=== PATIENT | female | born 1995 | race Caucasian/White ===

== ENCOUNTER 2017-08-15 11:48 | Emergency (ER) | payer OTHER ==
[~2017-08-15] VITALS: Ht 170.2 cm; Wt 105.7 kg
--- NOTE | ~2017-08-15 | EKG ---
[address] [place] [address] ELECTROCARDIOGRAM REPORT Name: SHIRARADHA Room #: [id number] Admission: 08/15/17 Attend Phys: Discharge: 08/15/17 Date of : [birth year] Report #: [id number] THIS REPORT FOR: //name// [facility] ED Test Date: 2017-08-15 Test Time: 12:45:27 Pat Name: RADHA SILVA Department: Room: Gender: F Factory Clerk: Ifeoma TERESA : 1995 Requested By: Lacie Rivero Order Number: [id number] MD: Juanpablo Lake Measurements Intervals [place] Rate: 64 P: 17 AL: 119 QRS: 33 QRSD: 94 T: -2 QT: 381 QTc: 393 Interpretive Statements Sinus rhythm Borderline short AL interval Nonspecific T abnormalities, anterior leads No previous ECG available for comparison Electronically Signed On 08-15-2017 16:38:38 CDT by Juanpablo Lake [email or web address] <ELECTRONICALLY SIGNED> By: Juanpablo Lake MD 08/15/17 1638 1245 1245 MD SPENCER Smith
[2017-08-15 12:51] LABS: ABSOLUTE NEUTROPHILS 5.4 thou/uL (1.4-8.2); BASOPHILS 0.8 % (0.0-2.0); EOSINOPHILS 0.8 % (0.0-3.0); HEMOGLOBIN 11.9 gm/dL (12.0-15.0); LYMPHOCYTES 25.3 % (24.0-44.0); MCH 28.5 pg (26.0-34.0); MCHC 33.2 g/dL (28.0-37.0); MONOCYTES 6.3 % (1.0-8.0); PLATELET COUNT 346 thou/uL (150-400); POLYS 66.8 % (36.0-66.0); RBC 4.18 mil/uL (4.20-5.00); RDW 12.8 % (10.5-14.5); WBC 8.1 thou/uL (4.0-11.0)
[2017-08-15 12:52] LABS: URINE BILIRUBIN NEGATIVE (Negative); URINE BLOOD 3+ (Negative); URINE COLOR YELLOW; URINE GLUCOSE-RANDOM* NEGATIVE (Negative); URINE KETONES NEGATIVE (Negative); URINE LEUKOCYTES-REFLEX NEGATIVE (Negative); URINE PROTEIN (DIPSTICK) TRACE (Negative); URINE UROBILINOGEN 0.2 E.U./dl (0.2-1.0)
[2017-08-15 12:53] LABS: CREATININE 0.8 mg/dL (0.6-1.0); POTASSIUM 3.9 mmol/L (3.5-5.1)
[2017-08-15 12:59] LABS: MANUAL DIFF NO
[2017-08-15 13:02] LABS: SQUAMOUS 4-10 Moderate /LPF (0-3)
[2017-08-15 13:03] LABS: CASTS None Seen /LPF (None Seen); CRYSTALS None Seen /LPF (None Seen); URINE RBC None Seen /HPF (0-2); URINE WBC-REFLEX 0-5 Rare /HPF (0-5)
[2017-08-15 15:54] VITALS: BP 133/68
== END 2017-08-15 16:05 | disposition home or self-care (01) ==
LOC: ER 11:48
PROVIDERS: Emergency Medicine
DX: R07.9 Chest pain, unspecified (principal); R11.2 Nausea with vomiting, unspecified

== ENCOUNTER 2021-05-15 07:47 | Emergency (ER) | payer OTHER ==
[~2021-05-15] VITALS: Ht 170.2 cm; Wt 113.4 kg
[2021-05-15] MEDS ORDERED: NORCO 10-325 T1 EACH PO (09:04)
[2021-05-15 09:18] VITALS: BP 148/95
== END 2021-05-15 09:18 | disposition home or self-care (01) ==
LOC: ER 07:47
DX: S09.22XA Traumatic rupture of left ear drum, initial encounter (principal); S00.83XA Contusion of other part of head, initial encounter; S09.90XA Unspecified injury of head, initial encounter; J45.909 Unspecified asthma, uncomplicated; F17.210 Nicotine dependence, cigarettes, uncomplicated; W13.9XXA Fall from, out of or through building, not otherwise specified, initial encounter; Y93.89 Activity, other specified; Y92.89 Other specified places as the place of occurrence of the external cause; Y99.8 Other external cause status